=== PATIENT | female | born 1960 | race Caucasian/White ===

== ENCOUNTER 2019-01-15 12:41 | Day surgery (SDC) | payer OTHER ==
[2019-01-15] MEDS ORDERED: FENTAnyl 50 MCG/ML VIAL (14:38)
[2019-01-15] MEDS ORDERED: MIDAZOLAM 1 MG/ML 2 ML INJ ×2 (14:38)
[2019-01-15] MEDS ORDERED: PROPOFOL 40 ML (14:53)
== END 2019-01-15 15:47 | disposition home or self-care (01) ==
LOC: GIL 12:41
DX: Z12.11 Encounter for screening for malignant neoplasm of colon (principal); K64.4 Residual hemorrhoidal skin tags; K64.8 Other hemorrhoids
CPT/HCPCS: 45378